=== PATIENT | female | born 1960 | race Asian ===

== ENCOUNTER → 2024-04-06 09:34 | Outpatient (REF) | payer BC, SELFPAY | LOC: RCS 09:34 | PROVIDERS: ATTENDING PHYSICIAN Internal Medicine Cardiovascular Disease; FAMILY PHYSICIAN Family Medicine | DX: R00.1 Bradycardia, unspecified (principal); R42 Dizziness and giddiness | CPT/HCPCS: 93225; 93226 ==

== ENCOUNTER → 2024-04-13 14:29 | Outpatient (REF) | payer BC, SELFPAY | LOC: WDC 14:29 | PROVIDERS: ATTENDING PHYSICIAN Family Medicine | DX: R07.89 Other chest pain (principal); Z78.9 Other specified health status; Z12.31 Encounter for screening mammogram for malignant neoplasm of breast | CPT/HCPCS: 93017; 77063; 77067; 93350 ==

== ENCOUNTER → 2024-05-04 16:25 | Outpatient (REF) | payer BC, SELFPAY | LOC: RAD 16:25 | PROVIDERS: ATTENDING PHYSICIAN Family Medicine | DX: E04.1 Nontoxic single thyroid nodule (principal); N28.89 Other specified disorders of kidney and ureter; K76.0 Fatty (change of) liver, not elsewhere classified; K76.89 Other specified diseases of liver | CPT/HCPCS: 76536; 76700 ==

== ENCOUNTER → 2024-05-31 07:15 | Outpatient (REF) | payer BC, SELFPAY | LOC: PAVMRI 07:15 | PROVIDERS: ATTENDING PHYSICIAN Family Medicine | DX: H53.2 Diplopia (principal); R47.89 Other speech disturbances; R41.3 Other amnesia; R42 Dizziness and giddiness | CPT/HCPCS: 70551 ==

== ENCOUNTER → 2025-05-15 13:45 | Outpatient (REF) | payer BC, SELFPAY | LOC: WDC 13:45 | PROVIDERS: ATTENDING PHYSICIAN Family Medicine | DX: Z12.31 Encounter for screening mammogram for malignant neoplasm of breast (principal) | CPT/HCPCS: 77063; 77067 ==

== ENCOUNTER → 2025-05-30 07:52 | Outpatient (REF) | payer BC, SELFPAY | LOC: RAD 07:52 | PROVIDERS: ATTENDING PHYSICIAN Family Medicine | DX: E04.1 Nontoxic single thyroid nodule (principal) | CPT/HCPCS: 76536 ==